=== PATIENT | female | born 1955 | race Asian ===

== ENCOUNTER 2019-12-28 11:15 | Emergency (ER) | payer MEDICARE ==
[~2019-12-28] VITALS: Ht 154.9 cm; Wt 52.2 kg
[2019-12-28 11:27] VITALS: BP_SYST 152
[2019-12-28 13:00] VITALS: BP_SYST 134
== END 2019-12-28 13:00 | disposition home or self-care (01) ==
LOC: SED 11:15
DX: S10.83XA Contusion of other specified part of neck, initial encounter (principal); M25.551 Pain in right hip; W01.0XXA Fall on same level from slipping, tripping and stumbling without subsequent striking against object, initial encounter; Y93.89 Activity, other specified; Y92.89 Other specified places as the place of occurrence of the external cause; Y99.8 Other external cause status
CPT/HCPCS: 72125-TC; 73502; 99284